=== PATIENT | male | born 1995 | race Caucasian/White ===

== ENCOUNTER 2017-01-12 11:56 | Emergency (ER) | payer OTHER ==
[~2017-01-12] VITALS: Ht 170.2 cm; Wt 64.7 kg
[2017-01-12 12:07] VITALS: TEMP 36.8; Ht 170.2 cm; Wt 64.7 kg
[2017-01-12] MEDS ORDERED: ACETAMINOPHEN 500 MG TAB PO STA (12:17)
[2017-01-12] MEDS ORDERED: IBUPROFEN 600 MG TAB PO STA (12:17)
--- NOTE | 2017-01-12 12:22 | EMERGENCY ROOM VISIT NOTE ---
History Report prepared by Tien: Carola Mckinney Under the Supervision of: Dr. Helio Sharp M.D. First contact with patient: 12:10 Chief Complaint: TESTICULAR PAIN Stated Complaint: TESTICULAR PAIN History of Present Illness The patient is a 21 year old male who presents to the Emergency Room with complaints of worsening bilateral testicular pain starting 2 days ago. The pain is equal in both testicles. It seems to be worsening. He notes that he was standing for an extended period at work yesterday. He currently rates his discomfort as a 7/10 in severity. He states that it feels like he has gotten hit in the groin. He tried taking some Advil last night to no significant relief. The testicles seem slightly swollen and red. He denies any trauma. He is also having lower abdominal pain. He denies any urinary symptoms, or penile discharge. He does not think this in an STD. He denies any medical problems and is not on any medications. Source of History: patient Onset: 2 days ago Position: other (bilateral testicles) Symptom Intensity: 7/10 Quality: other (pain) Timing: worsening Associated Symptoms: + abdominal pain, No urinary symptoms Note: Pt reports slightly swollen and red testicles. Pt denies penile discharge. Review of Systems See HPI for pertinent positives & negatives. A total of 10 systems reviewed and were otherwise negative. Past Medical & Surgical Medical Problems: (1) No chronic problems Family History No pertinent family history stated. Social History Smoking Status: Current Every Day Smoker Occupation Status: [employer] student Current/Historical Medications Scheduled Doxycycline Hyclate (Vibramycin), 100 MG PO BID Allergies Coded Allergies: No Known Allergies (Unverified , 01/12/17) Physical Exam Vital Signs Date Time Temp Pulse Resp B/P (MAP) Pulse Ox O2 Delivery O2 Flow Rate FiO2 01/12/17 14:18 66 18 105/46 98 Room Air 01/12/17 12:07 36.8 101 18 124/75 100 Room Air Physical Exam GENERAL: Patient is in no acute distress. HEENT: No acute trauma, normocephalic atraumatic, mucous membranes moist, no nasal congestion, no scleral icterus. NECK: No stridor, no adenopathy, no meningismus, trachea is midline. LUNGS: Clear to auscultation bilaterally, no wheeze, no rhonchi, breath sounds equal. HEART: Without murmurs gallops or rubs, regular rate and rhythm. ABDOMEN: Soft, nontender, bowel sounds positive, no hernias, no peritonitis. : Circumcised. No cellulitis. No penile discharge. No evidence for hernia. Testicles normal sized. Right epididymis moderately tender. Left epididymis mildly tender. EXTREMITIES: No cyanosis or edema, full range of motion of all the joints without pain or difficulty, no signs for acute trauma. NEUROLOGIC: Oriented x 3, no acute motor or sensory deficits, no focal weakness. SKIN: No rash, no jaundice, no diaphoresis. Medical Decision & Procedures ER Provider Diagnostic Interpretation: Radiology results as stated below per my review and radiologist interpretation: (TESTICULAR) SCROTUM-CONT CLINICAL HISTORY: 21 years-old Male with pain, right worse, poss torsion or infection. Acute right-sided scrotal pain COMPARISON STUDY: None available TECHNIQUE: Real-time, grayscale, and color Doppler sonography of the testes and scrotum is performed. Images are reviewed in the transverse and longitudinal planes. FINDINGS: RIGHT HEMISCROTUM: The right testis measures 4.8 x 2.5 x 2.4 cm and the parenchyma appears mildly heterogeneous and hypervascular. No intratesticular mass is seen. Normal-appearing arterial inflow is present within the right testicle. The right epididymal head appears heterogeneous and hypervascular. No varicocele or hydrocele is identified. LEFT HEMISCROTUM: The left testis measures 4.5 x 1.9 x 2.9 cm and the parenchyma appears mildly heterogeneous and hypervascular. No intratesticular mass is seen. Normal-appearing arterial inflow is present within the left testicle. The left epididymal head appears heterogeneous and hypervascular. Small left-sided hydrocele is identified. IMPRESSION: Findings compatible with bilateral epididymoorchitis with small left-sided hydrocele. No evidence of testicular torsion. The above report was generated using voice recognition software. It may contain grammatical, syntax or spelling errors. Electronically signed by: Jersey Jameson M.D. 01/12/2017 1:49 PM Dictated Date/Time: 01/12/2017 1:47 PM Laboratory Results Test 01/12/17 12:25 Urine Color YELLOW Urine Appearance CLEAR (CLEAR) Urine pH 5.5 (4.5-7.5) Urine Specific [place] 1.021 (1.000-1.030) Urine Protein NEG (NEG) Urine Glucose (UA) NEG (NEG) Urine Ketones NEG (NEG) Urine Occult Blood NEG (NEG) Urine Nitrite NEG (NEG) Urine Bilirubin NEG (NEG) Urine Urobilinogen NEG (NEG) Urine Leukocyte Esterase NEG (NEG) Laboratory results reviewed by me. Medications Administered Medications (Trade) Dose Ordered Sig/Karen Route Start Time Stop Time Status Last Admin Dose Admin Ibuprofen (Motrin Tab) 600 mg NOW STAT PO 01/12/17 12:17 01/12/17 12:18 DC 01/12/17 12:31 600 MG Acetaminophen (Tylenol Tab) 1,000 mg NOW STAT PO 01/12/17 12:17 01/12/17 12:18 DC 01/12/17 12:32 1,000 MG Ceftriaxone Sodium (Rocephin Im) 500 mg NOW ONCE IM 01/12/17 14:00 01/12/17 14:01 DC 01/12/17 14:18 500 MG Doxycycline Hyclate (Vibramycin Cap) 100 mg NOW STAT PO 01/12/17 13:59 01/12/17 14:01 DC 01/12/17 14:18 100 MG Azithromycin (Zithromax Tab) 1,000 mg NOW ONCE PO 01/12/17 14:00 01/12/17 14:01 DC 01/12/17 14:18 1,000 MG ED Course 1211: The patient was evaluated in room C4. A complete history and physical exam was performed. 1217: Acetaminophen 1000 mg PO, Ibuprofen 600 mg PO. 1359: Vibramycin Cap 100 mg PO. 1400: Azithromycin 1000 mg PO, Rocephin Im 500 mg IM. 1401: I reevaluated the patient. I discussed results and discharge instructions : He verbalized understanding and agreement. The patient is ready for discharge. Medical Decision Differential diagnoses considered include epididymitis, orchitis, UTI, cellulitis, hernia, mass, testicular torsion. The patient presents with bilateral testicular discomfort. On exam, there was no cellulitis. He was not febrile or toxic. Urinalysis does not show infection or hematuria. Testicular ultrasound suggests epididymitis/orchitis. No mention of mass. There was no evidence for testicular torsion. The patient was given oral Motrin and oral Tylenol. Received a dose of IM ceftriaxone, oral Zithromax and oral doxycycline. The patient will be treated for epididymitis/orchitis. He will be discharged on doxycycline twice a day for 2 weeks. Motrin/Tylenol for pain. Supportive underwear were suggested. If worsening, he should return. Impression Primary Impression: Epididymitis Scribe Attestation The scribe's documentation has been prepared under my direction and personally reviewed by me in its entirety. I confirm that the note above accurately reflects all work, treatment, procedures, and medical decision making performed by me. Departure Information Dispostion Home / Self-Care Prescriptions Doxycycline Hyclate (VIBRAMYCIN) 100 Mg Cap 100 MG PO BID for 14 Days, #28 CAP Prov: Helio Sharp M.D. 01/12/17 Referrals No Doctor, Assigned (PCP) Forms HOME CARE DOCUMENTATION FORM, IMPORTANT VISIT INFORMATION, WORK / SCHOOL INSTRUCTIONS Patient Instructions My [facility] Additional Instructions motrin and or tylenol for pain supportive underwear doxycycline 2x per day for 2 weeks return for worsening pain, fever or if not improving
[2017-01-12 12:46] LABS: URINE APPEARANCE CLEAR (CLEAR); URINE BILIRUBIN NEG (NEG); URINE COLOR YELLOW; URINE NITRITE NEG (NEG); URINE PH 5.5 (4.5-7.5); URINE SPECIFIC GRAVITY 1.021 (1.000-1.030); UROBILINOGEN NEG (NEG)
[2017-01-12 12:51] LABS: MANUAL MICROSCOPIC REQUIRED? NO; REVIEW REQ? NO
--- NOTE | 2017-01-12 13:51 | DIAGNOSTIC IMAGING REPORT ---
(TESTICULAR) SCROTUM-CONT CLINICAL HISTORY: 21 years-old Male with pain, right worse, poss torsion or infection. Acute right-sided scrotal pain COMPARISON STUDY: None available TECHNIQUE: Real-time, grayscale, and color Doppler sonography of the testes and scrotum is performed. Images are reviewed in the transverse and longitudinal planes. FINDINGS: RIGHT HEMISCROTUM: The right testis measures 4.8 x 2.5 x 2.4 cm and the parenchyma appears mildly heterogeneous and hypervascular. No intratesticular mass is seen. Normal-appearing arterial inflow is present within the right testicle. The right epididymal head appears heterogeneous and hypervascular. No varicocele or hydrocele is identified. LEFT HEMISCROTUM: The left testis measures 4.5 x 1.9 x 2.9 cm and the parenchyma appears mildly heterogeneous and hypervascular. No intratesticular mass is seen. Normal-appearing arterial inflow is present within the left testicle. The left epididymal head appears heterogeneous and hypervascular. Small left-sided hydrocele is identified. IMPRESSION: Findings compatible with bilateral epididymoorchitis with small left-sided hydrocele. No evidence of testicular torsion. The above report was generated using voice recognition software. It may contain grammatical, syntax or spelling errors. Electronically signed by: Jersey Jameson M.D. 01/12/2017 1:49 PM Dictated Date/Time: 01/12/2017 1:47 PM
[2017-01-12] MEDS ORDERED: DOXYCYCLINE HYCLATE 100 MG CAP PO STA (13:59)
[2017-01-12] MEDS ORDERED: CEFTRIAXONE SOD 350MG/ML 1 GM VIAL IM ONE (14:00)
[2017-01-12] MEDS ORDERED: AZITHROMYCIN 250 MG TAB PO ONE (14:00)
[2017-01-12] MEDS ORDERED: DOXY100C PO (14:06)
[2017-01-12 14:18] VITALS: BP 105/46; PULSE 66; O2SAT 98
== END 2017-01-12 14:42 | disposition home or self-care (01) ==
LOC: C.EDB 11:58 → C.EDC 14:42
DX: N45.1 Epididymitis (principal); F17.200 Nicotine dependence, unspecified, uncomplicated